=== PATIENT | male | born 1950 | race Caucasian/White ===

== ENCOUNTER 2020-02-03 12:40 | Outpatient (CLI) | payer MEDICARE, SELFPAY ==
--- NOTE | ~2020-02-03 | CT_ITS ---
EXAMINATION: CT sinus wo con DATE: 02/03/2020 13:22 INDICATION: Chronic sinusitis TECHNIQUE: Computed tomography (CT) of the paranasal sinuses was performed without contrast. Iterativ e reconstruction technique was employed. Exam dose: 284.29 mGy-cm total exam DLP. COMPARISON: None FINDINGS: Incidentally noted is a periapical abscess of the posterior-most upper right molar. There is mild rightward bowing of the anterior nasal septum There is symmetric prominence of the nasal turbinates. The ostiomeatal units are patent bilaterally. The paranasal sinuses are normally developed and aerated. The mastoid air cells are normally developed and aerated. IMPRESSION: Patent paranasal sinuses, ostiomeatal units and mastoid air cells Reviewed, dictated and finalized at [facility]. Reviewed, dictated and finalized at location A.
== END 2020-02-03 12:41 | disposition home or self-care (01) ==
PROVIDERS: PCP Family Medicine; Visit Provider Otolaryngology
DX: J32.9 Chronic sinusitis, unspecified (principal)
CPT/HCPCS: 70486

== ENCOUNTER 2020-07-11 09:05 | Outpatient (CLI) | payer MEDICARE, SELFPAY ==
--- NOTE | 2020-07-27 16:04 | WPDHOMESLEEP ---
Sleep Study - Home Unattended Date of Study: 07/11/20 Ordering Provider: Sebastian Almanzar MD Interpreting Provider: Soni Burger MD Home Sleep Study Type: Apnea Link Air Height: 1.7 m Weight: 90.718 kg Body Mass Index: 31.3 Neck Circumference (inches): 18 [place]: 9 Reason for Sleep Study Loud snoring, fatigue Sleep History Rodrigue Forde is a 70 year old man with constant loud snoring which causes other people to complain. He occasionally awakens at night with heartburn, belching or coughing. He frequently awakens from sleep feeling short of breath. He constantly has trouble sleep with a cold. He frequently wakes up gasping for breath at night. He frequently has breathing problems observed by others. He occasionally sweats excessively at night and notices his heart pounding or beating irregularly night. He constantly falls asleep during the day, involuntarily however only occasionally while driving. He occasionally falls asleep while exerting physical effort. he does not experience loss of muscle tone with strong emotion. He frequently has daytime difficulties due to excessive sleepiness. He occasionally feels paralyzed on waking or falling asleep. He occasionally has vivid dreamlike scenes upon awakening or falling asleep. He rarely feels afraid to go to sleep. He constantly has nightmares. He occasionally remembers his dreams. He frequently has racing thoughts. He occasionally feels sad or depressed. He frequently has anxiety with worry about different things. He occasionally has muscular tension, occasionally notices parts of his body jerking, occasionally kicks at night. He frequently has crawling and aching feelings in his legs. He occasionally has leg pain at night. He occasionally has morning jaw pain. He occasionally grind his teeth during sleep. He frequently is bothered by pain during the day. He constantly is awakened by pain during the night. He constantly wakes up feeling stiff in the morning, frequently with sore or achy muscles. He constantly awakens with pain in the neck and spine. He has fatigue, sexual problems, memory problems, nightmares, occasional morning headaches and insomnia. He takes antacids regularly. On occasion, he wakes up feeling refreshed. Normal bedtime is not recorded. It takes him approximately 15-30 minutes to fall asleep. He wakes up several times during the night and may stay awake for an hour or longer when he does awaken. He wakes in the morning at 6:00 a.m. he estimates getting between 4 and 6 hours of sleep at night. He takes naps. A short nap is not refreshing. Habits: Never smoked tobacco. No caffeine, alcohol or recreational drugs. [facility] Past Medical History Medical History (Updated 07/27/20 @ 17:11 by Soni Burger MD) BPH (benign prostatic hyperplasia) Fatigue GERD (gastroesophageal reflux disease) Seasonal allergies Surgical History Surgical History (Updated 07/27/20 @ 17:08 by Soni Burger MD) History of sinus surgery Status post tonsillectomy Medications Medications: sertraline 100 mg a day tamsulosin 0.4 mg daily Sleep Procedure This test was performed using 4 channel monitoring including respiratory effort channel, snoring channel, heart rate channel, and oxygen saturation channel. This study was scored using [facility] guidelines. Sleep Architecture Not applicable for home sleep test. Respiratory Analysis The apnea-hypopnea index is 20.3. He had 127 apneas. He had 40 obstructive apneas, 31% of the total, and 86 central apneas, 68% of the total. He had 1 mixed apnea which was 1% of the total. He had 18 hypopneas. There is no evidence of Lane-Holden respirations. Oximetry Data The oxygen desaturation index is 3.8, normal range. the lowest desaturation is 90%. Average saturation 95%. He had 27 desaturations. He did not spend any time below 88%. Snoring Profile The patient had 505 snoring events, a small portion of the
[2020-07-27 16:09] VITALS: BMI 31.3
== END 2020-07-11 09:06 | disposition home or self-care (01) ==
LOC: ANHCSM 09:05
PROVIDERS: PCP Family Medicine; Visit Provider Family Medicine
DX: G47.10 Hypersomnia, unspecified (principal); G47.33 Obstructive sleep apnea (adult) (pediatric)
CPT/HCPCS: 95806

== ENCOUNTER → 2020-08-26 06:53 | Outpatient (CLI) | payer MEDICARE, SELFPAY ==
[2020-08-26 19:12] LABS: SARS-CoV-2 RNA PCR Negative
== END ==
PROVIDERS: Internal Medicine Critical Care Medicine; PCP Family Medicine; Visit Provider Family Medicine
DX: Z20.822 Contact with and (suspected) exposure to COVID-19 (principal); R05 Cough
CPT/HCPCS: C9803; U0003; U0005

== ENCOUNTER → 2020-09-05 02:36 | Outpatient (CLI) | payer MEDICARE, SELFPAY ==
[2020-09-05 19:19] LABS: SARS-CoV-2 RNA PCR Negative
== END ==
PROVIDERS: PCP Family Medicine; Visit Provider Internal Medicine Critical Care Medicine
DX: R68.89 Other general symptoms and signs (principal); Z20.822 Contact with and (suspected) exposure to COVID-19
CPT/HCPCS: C9803; U0003; U0005

== ENCOUNTER 2020-09-07 08:43 | Outpatient (CLI) | payer MEDICARE, SELFPAY ==
--- NOTE | 2020-09-23 13:17 | WPDSLEEPSTUD ---
Sleep Study Date of Study: 09/07/20 Ordering Provider: Sebastian Almanzar MD Interpreting Physician: Soni Burger MD Sleep Study Type: CPAP Titration Height: 1.7 m Weight: 90.718 kg Body Mass Index: 31.3 Neck Circumference (inches): 18 [place]: 9 Reason for Sleep Study 07/11/2020 home sleep test ApneaLink : moderate obstructive sleep apnea with an apnea-hypopnea index of 20.3, mostly central events with 87% of the events being scored as central apneas or mixed apneas. He presents now for a CPAP titration. Sleep History Rodrigue Forde is a 70 year old man with constant loud snoring which causes other people to complain. He occasionally awakens at night with heartburn, belching or coughing. He frequently awakens from sleep feeling short of breath. He constantly has trouble sleep with a cold. He frequently wakes up gasping for breath at night. He frequently has breathing problems observed by others. He occasionally sweats excessively at night and notices his heart pounding or beating irregularly night. He constantly falls asleep during the day, involuntarily however only occasionally while driving. He occasionally falls asleep while exerting physical effort. he does not experience loss of muscle tone with strong emotion. He frequently has daytime difficulties due to excessive sleepiness. He occasionally feels paralyzed on waking or falling asleep. He occasionally has vivid dreamlike scenes upon awakening or falling asleep. He rarely feels afraid to go to sleep. He constantly has nightmares. He occasionally remembers his dreams. He frequently has racing thoughts. He occasionally feels sad or depressed. He frequently has anxiety with worry about different things. He occasionally has muscular tension, occasionally notices parts of his body jerking, occasionally kicks at night. He frequently has crawling and aching feelings in his legs. He occasionally has leg pain at night. He occasionally has morning jaw pain. He occasionally grind his teeth during sleep. He frequently is bothered by pain during the day. He constantly is awakened by pain during the night. He constantly wakes up feeling stiff in the morning, frequently with sore or achy muscles. He constantly awakens with pain in the neck and spine. He has fatigue, sexual problems, memory problems, nightmares, occasional morning headaches and insomnia. He takes antacids regularly. On occasion, he wakes up feeling refreshed. Normal bedtime is not recorded. It takes him approximately 15-30 minutes to fall asleep. He wakes up several times during the night and may stay awake for an hour or longer when he does awaken. He wakes in the morning at 6:00 a.m. he estimates getting between 4 and 6 hours of sleep at night. He takes naps. A short nap is not refreshing. Habits: Never smoked tobacco. No caffeine, alcohol or recreational drugs. [facility] Past Medical History Medical History (Updated 09/23/20 @ 13:57 by Soni Burger MD) BPH (benign prostatic hyperplasia) Fatigue GERD (gastroesophageal reflux disease) Seasonal allergies Surgical History Surgical History (Updated 07/27/20 @ 17:08 by Soni Burger MD) History of sinus surgery Status post tonsillectomy Social History Social History (Updated 09/23/20 @ 13:19 by Soni Burger MD) Smoking status: Never smoker Alcohol intake: never Substance use: never Medications Medications: sertraline 100 mg a day tamsulosin 0.4 mg daily Sleep Procedure This test was performed using the [employer] multiple channel system including EOG, EEG, submental EMG, EKG, nasal and oral airflow using thermistors and nasal pressure sensors, chest and abdominal belts for body position data, and pulse oximetry. Video monitoring was also performed. The study was scored using [facility] guidelines. The patient was started on CPAP using a Medium Sainz FX nasal pillow and heated humidifier. Initial pressure was 5 cm, increased to 7 cm, 9
[2020-09-23 14:00] VITALS: BMI 31.3
== END 2020-09-07 08:44 | disposition home or self-care (01) ==
LOC: ANHCSM 08:44
PROVIDERS: PCP Family Medicine; Visit Provider Family Medicine
DX: G47.33 Obstructive sleep apnea (adult) (pediatric) (principal); G25.81 Restless legs syndrome
CPT/HCPCS: 95811

== ENCOUNTER 2020-09-20 10:56 | Outpatient (CLI) | payer MEDICARE, SELFPAY ==
--- NOTE | ~2020-09-20 | XR_ITS ---
XR lumbar spine 2-3V 09/20/2020 11:22 Indication: Back pain Procedure: 3 views lumbar spine Comparison: No prior studies for comparison. Findings: There is mild dextroscoliosis of the lumbar spine centered at L2-3. There is disc narrowing at all lumbar levels. There is moderate multilevel facet hypertrophy. There is symmetry of the sacra l foramen. There is degenerative retrolisthesis at L2-3. There is atherosclerosis of the aorta. Impression: 1: Moderate lumbar spondylosis with dextroscoliosis centered at L2-3. Reviewed, dictated and finalized at location A. Impression: 1: Moderate lumbar spondylosis with dextroscoliosis centered at L2-3.
== END 2020-09-20 10:57 | disposition home or self-care (01) ==
PROVIDERS: PCP Family Medicine; Visit Provider Physician Assistant
DX: M47.26 Other spondylosis with radiculopathy, lumbar region (principal)
CPT/HCPCS: 72100

== ENCOUNTER 2022-10-09 10:24 | Outpatient (CLI) | payer MEDICARE, SELFPAY ==
--- NOTE | ~2022-10-09 | US_ITS ---
US abdomen limited INDICATION: Right upper quadrant pain PROCEDURE: Realtime right upper abdominal ultrasound. COMPARISON: No prior studies for comparison. FINDINGS: The pancreas is normal without focal mass or pancreatic ductal dilation. Liver echotexture is increased, consistent with fatty infiltration. No discrete hepatic mass. There is normal directi onal flow in the portal vein. The gallbladder is normal without stones, gallbladder wall thickening or pericholecystic fluid. Comm on bile duct measures 6 mm. No sonographic Moore's sign. IMPRESSION: 1: Hepatic steatosis. Reviewed, dictated and finalized at location L. IMPRESSION: 1: Hepatic steatosis.
== END 2022-10-09 10:25 | disposition home or self-care (01) ==
PROVIDERS: PCP Family Medicine; Visit Provider Family Medicine
DX: R10.11 Right upper quadrant pain (principal); K76.0 Fatty (change of) liver, not elsewhere classified
CPT/HCPCS: 76705

== ENCOUNTER 2024-02-24 10:05 | Outpatient (CLI) | payer MEDICARE, SELFPAY ==
--- NOTE | ~2024-02-24 | DEXA_ITS ---
Bone Density Report Name: JO ANN PHILLIPS Age: 73 Sex: Male Ethnicity: White Date of : 1950 Indication: screening for osteoporosis; height loss; Referring Provider: ZENOBIA FONG Study: Bone densitometry was performed. Exam Date: February 24, 2024 Accession number: [id number] Bone Density: Region BMD T-score Z-score Classification AP Spine(L1-L4) 1.300 1.9 2.9 Normal Femoral Neck (Left) 0.667 -1.9 -0.6 Osteopenia Total Hip (Left) 1.009 -0.2 0.6 Normal Femoral Neck (Right) 0.754 -1.3 0.0 Osteopenia Total Hip (Right) 0.968 -0.4 0.4 Normal Total Hip Mean 0.988 -0.3 0.5 Normal World Health Organization criteria for BMD impression classify patients as: Normal (T-score at or above -1.0), Osteopenia (T-score between -1.0 and -2.5), or Osteoporosis (T-score at or below -2.5). 10-year Fracture Risk(1): Major Osteoporotic Fracture 7.6% Hip Fracture 2.5% Reported Risk Factors: [place] (), Neck BMD=0.667, BMI=32.4 (1) FRAX(R) Version 3.08. Fracture probability calculated for an untreated patient. Fracture probability may be lower if the patient has received treatment. Clinical Information Provided by Patient: Patient maximum height was 67.5 No regular weight bearing exercise Drinks caffeinated beverages Impression: The patient has low bone mass, based on the Left Femoral Neck T-score. The patient has an estimated ten-year risk of hip fracture of 2.5% and an estimated ten-year risk of major fracture of 7.6%, based on the WHO FRAX algorithm. Discussion: BONE DENSITY IS LOW AT ONE OR MORE SKELETAL SITES. This patient's lowest T-score is low at one or more skeletal sites. It meets the World Health Organization's (WHO) criteria for ?low bone mass? (T-score between -1.0 and -2.5). The patient's 10-year risk of fracture as calculated by FRAX is less than the threshold where pharmacological therapy is recommended by the National Osteoporosis Foundation (NOF). However, all treatment decisions require clinical judgment and consideration of individual patient factors, including patient preferences, comorbidities, previous drug use, risk factors not captured in the FRAX model (e.g., frailty, falls, vitamin D deficiency, increased bone turnover, interval significant decline in bone density) and possible under or overestimation of fracture risk by FRAX. The patient should follow a healthful lifestyle (good nutrition with adequate calcium and vitamin D, and appropriate weight-bearing exercise). Follow-Up: Consider repeating this study in 2 to 3 years to reassess this patient's status, or sooner if there is some new clinical indication. Reported by: CADE on 02/24/2024 10:41:00 AM. Reviewed, dictated and finalized at location A. LAMAR
== END 2024-02-24 10:06 | disposition home or self-care (01) ==
LOC: ANHIMG 10:05
PROVIDERS: PCP Family Medicine; Visit Provider Family Medicine
DX: Z13.820 Encounter for screening for osteoporosis (principal); Z87.81 Personal history of (healed) traumatic fracture; M85.852 Other specified disorders of bone density and structure, left thigh; M85.851 Other specified disorders of bone density and structure, right thigh
CPT/HCPCS: 77080

== ENCOUNTER 2024-03-10 03:19 | Day surgery (SDC) | payer MEDICARE, SELFPAY ==
[2024-02-26 14:42] VITALS: BMI 29.9
[2024-03-10 10:18] VITALS: BP 121/63; PULSE 63; RESP 16; TEMP 36.8; O2SAT 99
[2024-03-10] MEDS: LACTATED RINGERS 1,000 ML 150 ML IV CONT (10:24)
--- NOTE | 2024-03-10 10:37 | WPDANESEPPF ---
Anes - Initial Pre Proc Eval Procedure: Operation Date: 03/10/24 11:30 Proposed Procedures p Colonoscopy - Sagar Heck MD Date/Time: 03/10/24 10:37 Surgeon: Sagar Heck MD Pre Op Diagnosis: Personal history colon polyps Patient Data Age: 73 Gender: M Height: 1.7 m Weight: 86.3 kg Last Vital Signs Temp 98.2 F 03/10/24 10:18 Pulse 63 03/10/24 10:18 Resp 16 03/10/24 10:18 BP 121/63 03/10/24 10:18 Pulse Ox 99 03/10/24 10:18 O2 Del Method Room Air 03/10/24 10:18 Allergies Allergy/AdvReac Type Severity Reaction Status Date / Time No Known Allergies Allergy Verified 03/10/24 10:17 Home Medications Medication Instructions Recorded Confirmed Type sertraline 100 mg tablet 100 mg PO DAILY 09/19/22 03/10/24 History tamsulosin 0.4 mg capsule 0.4 mg PO QHS 09/19/22 03/10/24 History omeprazole 20 mg capsule,delayed 20 mg PO DAILY #90 caps 11/12/23 03/10/24 Rx release Patient hx anesthesia problems: none Family hx anesthesia problems: none Results Review: All pre-operative results and documents have been reviewed as part of the pre-operative evaluation. [facility] Past Medical History Medical History BPH (benign prostatic hyperplasia) Elevated blood pressure reading without diagnosis of hypertension Fatigue GERD (gastroesophageal reflux disease) Major depression in partial remission Personal history of colonic polyps Seasonal allergies Surgical History Surgical History History of sinus surgery Status post tonsillectomy Social History Social History Smoking status: Never smoker Alcohol intake: never Substance use: never Do You Feel Safe in your Home?: Yes Lack of Transportation: No Lack of Food: Never True Current Housing: I Have Housing Concerned About Future Housing: No Difficulty Paying Gas/Electric Bills: No Difficulty Paying for Meds: No Currently Unemployed: No Education: High School Diploma/GED Living arrangements: with family Occupation/Education: retired Gender identity (if verbalized by the patient): Male Sexual Orientation (if Verbalized by the Patient): Straight or Heterosexual Spiritual care concerns: No Anes - Eval Final PreProcedure Day of Procedure 03/10/24 10:37 Patient weight: normal Heart: regular rate and rhythm Lungs: clear to auscultation Airway: Mallampati scale class III Neurological: alert and oriented Last oral intake: >/= 8 hours ASA classification: III Emergent: no Anesthetic plan: proceed Anesthesia type and monitoring: general GIVS Results Review: All pre-operative results and documents have been reviewed as part of the pre-operative evaluation. Informed Consent: The patient's anesthetic plan and its attendant risks and benefits were discussed with the patient/family/POA. Questions were solicited and answers provided to the satisfaction of the patient/family/POA.
--- NOTE | 2024-03-10 10:57 | PM.HPGS ---
History of Present Illness History of Present Illness Consent: Risks, benefits, and alternatives have been discussed and questions answered. Patient agrees to proceed with procedure. Chief complaint: Personal history colon polyps Narrative: Rodrigue Forde is a 73 year old male with colon polyp in 2019 Review of Systems Review of Systems: All systems reviewed & are unremarkable except as noted in HPI and below PMFSH Past Medical History Medical History BPH (benign prostatic hyperplasia) Elevated blood pressure reading without diagnosis of hypertension Fatigue GERD (gastroesophageal reflux disease) Major depression in partial remission Personal history of colonic polyps Seasonal allergies Surgical History Surgical History History of sinus surgery Status post tonsillectomy Social History Social History Smoking status: Never smoker Alcohol intake: never Substance use: never Do You Feel Safe in your Home?: Yes Lack of Transportation: No Lack of Food: Never True Current Housing: I Have Housing Concerned About Future Housing: No Difficulty Paying Gas/Electric Bills: No Difficulty Paying for Meds: No Currently Unemployed: No Education: High School Diploma/GED Living arrangements: with family Occupation/Education: retired Gender identity (if verbalized by the patient): Male Sexual Orientation (if Verbalized by the Patient): Straight or Heterosexual Spiritual care concerns: No Meds Home Medications and Allergies Home Medications Medication Instructions Recorded Confirmed Type sertraline 100 mg tablet 100 mg PO DAILY 09/19/22 03/10/24 History tamsulosin 0.4 mg capsule 0.4 mg PO QHS 09/19/22 03/10/24 History omeprazole 20 mg capsule,delayed 20 mg PO DAILY #90 caps 11/12/23 03/10/24 Rx release Allergies Allergy/AdvReac Type Severity Reaction Status Date / Time No Known Allergies Allergy Verified 03/10/24 10:17 Vital Signs Vital Signs - 24 hr 03/10/24 10:18 Temperature 98.2 F Pulse Rate 63 Respiratory Rate 16 Blood Pressure 121/63 Pulse Oximetry 99 Oxygen Delivery Room Air Exam Const: General: comfortable and no acute distress HENMT: Face/Nose/Sinus: Normal nares present Eyes: General: appearance normal, both eyes and all related structures Neck: Neck: no JVD Resp: Auscultation: clear to auscultation bilaterally Cardio: Rate: regular rate Rhythm: regular rhythm GI: Inspection: non-distended GI Palp: Yes Soft to palpation Skin: General skin exam: normal color Neuro: General: gait normal Speech: normal speech Extrem: General: normal to inspection Psych: Mental Status: mental status grossly normal Assessment and Plan Assessment and plan (1) Personal history of colonic polyps: Code(s): Z86.010 - Personal history of colon polyps Status: Acute Assessment and Plan: colonoscopy
[2024-03-10 11:27] VITALS: BP 102/58; PULSE 54; RESP 18; O2SAT 96
[2024-03-10 11:37] VITALS: BP 99/60; PULSE 56; RESP 24; O2SAT 100
[2024-03-10 11:47] VITALS: BP 112/67; PULSE 54; RESP 14; O2SAT 95
== END 2024-03-10 11:53 | disposition home or self-care (01) ==
PROVIDERS: PCP Family Medicine; Visit Provider Internal Medicine Gastroenterology
PROC: 0DJD8ZZ Inspection of Lower Intestinal Tract, Via Natural or Artificial Opening Endoscopic (ICD-10-PCS; CPT 45378; principal; 2024-03-10 11:30)
DX: Z12.11 Encounter for screening for malignant neoplasm of colon (principal); D12.0 Benign neoplasm of cecum; D12.2 Benign neoplasm of ascending colon; D12.3 Benign neoplasm of transverse colon; K57.30 Diverticulosis of large intestine without perforation or abscess without bleeding; K64.8 Other hemorrhoids; K21.9 Gastro-esophageal reflux disease without esophagitis; N40.0 Benign prostatic hyperplasia without lower urinary tract symptoms; F32.4 Major depressive disorder, single episode, in partial remission
CPT/HCPCS: 45381; 45385; 88305; J2003; J2704; J7120

== ENCOUNTER 2024-03-12 13:08 | Observation (INO) | payer MEDICARE, SELFPAY ==
[2024-03-12 13:20] VITALS: BMI 30.7
[2024-03-12 13:34] LABS: Hematocrit 30.8 % (42.0-52.0); Mean Corpuscular HGB Conc 32.5 g/dl (32-36); Mean Corpuscular Hemoglobin 27.9 pg (26-34); Mean Corpuscular Volume 85.8 fl (80-100); Platelet Count Result 176 k/mm3 (150-375); Red Blood Count 3.59 M/mm3 (4.6-6.20); Red Cell Distribution Width 14.5 % (11.5-14.5); White Blood Count 8.4 K/mm3 (4.5-10.0)
[2024-03-12 13:46] LABS: INR 1.1; Prothrombin Time 14.4 Seconds (11.1-14.7)
[2024-03-12 13:47] LABS: Partial Thromboplastin Time 28.1 Seconds (22.3-36.8)
[2024-03-12 13:48] LABS: Anion Gap 3 mmol/L (4-12); Blood Urea Nitrogen 19 mg/dL (9-20); Calcium 8.8 mg/dL (8.4-10.2); Carbon Dioxide 26 mmol/L (22-30); Chloride 106 mmol/L (98-107); Estimated Glomerular Filt Rate > 60; Glucose 110 mg/dL (65-110); Potassium 5.2 mmol/L (3.4-5.0); Sodium 135 mmol/L (137-145)
[2024-03-12 14:00] VITALS: PULSE 67
--- NOTE | 2024-03-12 14:14 | PC.NURSE ---
1251pm arrived to the room via stretcher with EMS from another hospital facility. Alert and oriented at this time. machine driller placed on and functioning at this time. Vital signs obtained and WNL at this time. Denies pain or discomfort. Denies dizziness. States he went to the other facility related to bleeding when having a bowel movement. Last bowel movement today 07/11/23 at 0330am, per patient and RN at other facility. Discussed plan of care including lab draws, medications, GI consult, diet, and activity with patient. Verbalizes understanding at this time. No acute distress noted.
--- NOTE | 2024-03-12 15:13 | P.CONGI_ITS ---
Assessment and Plan Assessment and plan (1) GI bleed: Qualifiers: GI bleed type/associated pathology: unspecified gastrointestinal hemorrhage type Qualified Code(s): K92.2 - Gastrointestinal hemorrhage, unspecified Code(s): K92.2 - Gastrointestinal hemorrhage, unspecified Status: Acute Assessment and Plan: most likely post polypectomy bleeding, had large TA adenoma polyps removed, I even placed a clip it has not had more bleeding for last 12 hours but had pre syncopal episode, he is agreeable to have colonoscopy tomorrow so we can assess and ensure that bleeding has stopped (2) Acute blood loss anemia: Code(s): D62 - Acute posthemorrhagic anemia Status: Acute Assessment and Plan: monitor for more signs of bleeding (3) Rectal bleeding: Code(s): K62.5 - Hemorrhage of anus and rectum Status: Acute (4) Post-polypectomy bleeding: Status: Acute Assessment and Plan: colonoscopy tomorrow (5) Near syncope: Code(s): R55 - Syncope and collapse Status: Acute GI Consult Note Consult date/time: 03/12/24 15:13 Reason for consult: rectal bleeding HPI: Rodrigue Forde is a 73 year old male h/o HTN and recent colonoscopy because previous colon polyps. He had several polyps, largest 12 mm at ascending with clip placed to prevent bleeding, had another polyp in transverse removed using hot snare. Pathology c/w TA polyps. He started passing blood with stool several times then became lightheaded and almost passed out finally went to another ER. Hgb 10, CT scan showed possible inflammation in transverse colon and transferred here. Last BM was at 3 am and feeling ok, no abdominal pain. Review of Systems Constitutional: Constitutional: Denies chills Eyes: Eyes: Denies blurry vision ENT: Reports Normal hearing present Cardiovascular: Cardiovascular: Denies chest pain Respiratory: Respiratory: Denies cough Gastrointestinal: Gastrointestinal: Reports hematochezia Genitourinary: Genitourinary: Denies dysuria Musculoskeletal: Musculoskeletal: Denies neck pain Integumentary/Breasts: Skin/Breast: Denies rash Neurologic: Denies Abnormal speech present Psychiatric: Psychiatric: Denies behavioral changes [facility] Past Medical History Medical History (Updated 03/12/24 @ 15:17 by Sagar Heck MD) Acute blood loss anemia BPH (benign prostatic hyperplasia) Elevated blood pressure reading without diagnosis of hypertension Fatigue GERD (gastroesophageal reflux disease) Major depression in partial remission Near syncope Personal history of colonic polyps Post-polypectomy bleeding Rectal bleeding Restless legs syndrome (RLS) Seasonal allergies Surgical History Surgical History History of sinus surgery Status post tonsillectomy Social History Social History Smoking status: Never smoker Second hand tobacco smoke exposure: No Alcohol intake: never Drinks per week: 0 Substance use: never Substance use type: does not use Do You Feel Safe in your Home?: Yes Lack of Transportation: No Lack of Food: Never True Current Housing: I Have Housing Concerned About Future Housing: No Difficulty Paying Gas/Electric Bills: No Difficulty Paying for Meds: No Currently Unemployed: No Education: High School Diploma/GED Difficulty w/ Childcare or Family Care: No Living arrangements: with family Occupation/Education: retired Gender identity (if verbalized by the patient): Male Sexual Orientation (if Verbalized by the Patient): Straight or Heterosexual Spiritual care concerns: No Meds Home Medications and Allergies Home Medications Medication Instructions Recorded Confirmed Type sertraline 100 mg tablet 100 mg PO DAILY 09/19/22 03/12/24 History tamsulosin 0.4 mg capsule 0.4 mg PO QHS 09/19/22 03/12/24 History omeprazole 20 mg capsule,delayed 20 mg PO DAILY #90 caps 11/12/23 03/12/24 Rx release Allergies Allergy/AdvReac Type Severity Reaction Status Date / Time No Known Allergies Allergy Verified 03/10/24 10:17 Vital Signs Vital Signs - 24 hr 03/12/24 14:00 Pulse Rate 67 Exam Const: General: comfortable and no acute distress HENMT: Face/Nose/Sinus: Normal nares present Eyes: General: appearance normal, both eyes and all related structures Neck: Neck: supple Resp: Auscultation: clear to auscultation bilaterally Cardio: Rate: regular rate Rhythm: regular rhythm GI: Inspection: non-distended GI Palp: Yes Soft to palpation and No Tenderness to palpation present (GI) Auscultation: normal bowel sounds Skin: General skin exam: normal color Neuro: Speech: normal speech Motor exam (neuro): 5/5 motor strength present throughout Extrem: General: normal to inspection Psych: Mental Status: mental status grossly normal Results Labs 03/12/24 13:28 03/12/24 13:28 Labs: Short CBC 03/12/24 Range/Units 13:28 WBC 8.4 (4.5-10.0) K/mm3 Hgb 10.0 L (14.0-18.0) g/dL Hct 30.8 L (42.0-52.0) % Plt Count 176 (150-375) k/mm3 BMP 03/12/24 13:28 Sodium 135 L Potassium 5.2 H Chloride 106 Carbon Dioxide 26 BUN 19 Creatinine 1.10 Glucose 110 Calcium 8.8
[2024-03-12 16:00] VITALS: BP 136/66; PULSE 70; PULSE 72; RESP 20; TEMP 36.6; O2SAT 98
--- NOTE | 2024-03-12 16:01 | PM.IMHP ---
H&P: HPI History of Present Illness Date/Time: 03/12/24 16:01 Chief Complaint: Blood in Stool Narrative: 73 y/o M presents here with blood in his stool with PMH of BPH, GERD, depression, sleep apnea with intermittent CPAP use, and seasonal allergies. The patient presented to [facility] ER on 03/12 for further evaluation of blood in his stool. The patient had a colonoscopy performed on 03/10 (Saturday) here at [place] with Ney MAYO. Colonoscopy showed colonic polyps, diverticulosis without perforation or abscess or bleeding, internal hemorrhoids. The patient underwent multiple polypectomies (4) during the scope with 1 clip placed. Patient had 1 small bowel movement same day after the scope that was liquid. Stools have remained loose. Patient began having multiple large volume BMs mixed with blood, patient and his feel it was more blood, started at 8:00 p.m. on 03/11 (Saturday). He described the blood as both dark red clots and bright red blood. Since onset he has had 10 bloody bowel movements since onset, last episode at 02:30 a.m. this morning. With the last episode the patient felt lightheaded and diaphoretic like he may pass out. He endorses mild abdominal cramping, lightheadedness, and nausea without vomiting. Denies fever, chills, or shortness of breath. The patient is currently reporting resolution of abdominal pain. Reporting mild bloating and gas. Initial VS at transfer: ED workup showed: WBC 13.61, hemoglobin 10.3, creatinine 1.33. CT of the abdomen/pelvis showed short segment wall thickening and hazy fat stranding involving the mid transverse colon (findings nonspecific but a focal infection or inflammatory process cannot be excluded), no evidence of perforation or abscess, colonic diverticulosis without acute inflammatory process, interval progression of the superior endplate L1 vertebral fracture. Review of Systems Review of Systems: All systems reviewed & are unremarkable except as noted in HPI and below PMFSH Past Medical History Medical History Acute blood loss anemia BPH (benign prostatic hyperplasia) Elevated blood pressure reading without diagnosis of hypertension Fatigue GERD (gastroesophageal reflux disease) Major depression in partial remission Near syncope Personal history of colonic polyps Post-polypectomy bleeding Rectal bleeding Restless legs syndrome (RLS) Seasonal allergies Surgical History Surgical History History of sinus surgery Status post tonsillectomy Social History Social History Smoking status: Never smoker Second hand tobacco smoke exposure: No Alcohol intake: never Drinks per week: 0 Substance use: never Substance use type: does not use Do You Feel Safe in your Home?: Yes Lack of Transportation: No Lack of Food: Never True Current Housing: I Have Housing Concerned About Future Housing: No Difficulty Paying Gas/Electric Bills: No Difficulty Paying for Meds: No Currently Unemployed: No Education: High School Diploma/GED Difficulty w/ Childcare or Family Care: No Living arrangements: with family Occupation/Education: retired Gender identity (if verbalized by the patient): Male Sexual Orientation (if Verbalized by the Patient): Straight or Heterosexual Spiritual care concerns: No Meds Home Medications and Allergies Home Medications Medication Instructions Recorded Confirmed Type sertraline 100 mg tablet 100 mg PO DAILY 09/19/22 03/12/24 History tamsulosin 0.4 mg capsule 0.4 mg PO QHS 09/19/22 03/12/24 History omeprazole 20 mg capsule,delayed 20 mg PO DAILY #90 caps 11/12/23 03/12/24 Rx release Allergies Allergy/AdvReac Type Severity Reaction Status Date / Time No Known Allergies Allergy Verified 03/10/24 10:17 Exam Const: General: comfortable and no acute distress Other: , male, nontoxic appearance HENMT: Face/Nose/Sinus: Normal nares present Mouth: Yes moist mucous membranes Eyes: General: appearance normal, both eyes and all related structures Sclera: sclerae normal Pupils: Equal, round and reactive pupils present EOM: EOMs intact bilaterally Resp: Effort & Inspection: normal respiratory effort Auscultation: clear to auscultation bilaterally Cardio: Rate: regular rate Rhythm: regular rhythm Other: S1-S2 present without murmur, rub, ectopy GI: Other: Normo to hyperactive bowel sounds in all quadrants Skin: General skin exam: normal color and no rashes or lesions noted Wounds: no wounds Neuro: Speech: normal speech Motor exam (neuro): 5/5 motor strength present throughout Sensory Exam: normal sensation Other: A&O x4 Extrem: General: normal to inspection Psych: Mental Status: mental status grossly normal Affect: normal affect Other: Good insight and judgment, pleasant H&P: Results Labs Labs: Short CBC 03/12/24 Range/Units 13:28 WBC 8.4 (4.5-10.0) K/mm3 Hgb 10.0 L (14.0-18.0) g/dL Hct 30.8 L (42.0-52.0) % Plt Count 176 (150-375) k/mm3 Assessment and Plan Assessment and plan (1) GI bleed: Qualifiers: GI bleed type/associated pathology: unspecified gastrointestinal hemorrhage type Qualified Code(s): K92.2 - Gastrointestinal hemorrhage, unspecified Code(s): K92.2 - Gastrointestinal hemorrhage, unspecified Status: Acute Assessment and Plan: - Hgb 10.3 -> 10, stable - GI consulted, plan for colonoscopy tomorrow. - NPO at midnight - colonoscopy, previous (03/10/24): Colon polyps, diverticulosis without perforation or abscess without bleeding, internal hemorrhoids. For polypectomies performed with 1 resolution clip placed. - trend H&H (2) Obstructive sleep apnea: Code(s): G47.33 - Obstructive sleep apnea (adult) (pediatric) Status: Acute Assessment and Plan: - continue home CPAP Plan Diet: Clear liquid, NPO at midnight GI Prophylaxis: Not currently indicated DVT Prophylaxis: SCDs Lines: Peripheral Code Status: Full code Quality VTE Prophylaxis VTE prophylaxis: mechanical ordered Hospitalist MIPS Advance Care Plan I have confirmed that the patient's Advanced Care Plan is present, code status is documented, or surrogate decision maker is listed in patient medical record.: Yes Medication Reconciliation I have utilized all available resources to obtain, update and review the patients current medications (includes all prescriptions, OTC, herbals, cannabis, and nutritional supplements).: Yes
--- NOTE | 2024-03-12 17:07 | PCRCNOTE ---
I brought a BiPAP/CPAP to the patient, he said he wears one at night when he is at home. He did not bring his own machine in but when I offered for him to use our machine he said no he didn't want to use ours. I told him if he changed his mind that he can let us know.
[2024-03-12] MEDS: BISACODYL 5 MG TABLET EC 20 MG PO (18:07)
[2024-03-12] MEDS: polyethylene glycoL 3350 238 GM BOTTLE PO (18:07)
[2024-03-12] MEDS: ONDANSETRON INJ 4 MG/2 ML VIAL IV PUSH (18:07)
[2024-03-12 19:51] VITALS: BP 114/67; PULSE 80; RESP 16; TEMP 36.4; O2SAT 96
[2024-03-12 20:00] VITALS: PULSE 83
[2024-03-12 20:38] LABS: Hematocrit 30.6 % (42.0-52.0); Hemoglobin 10.2 g/dL (14.0-18.0)
[2024-03-12] MEDS: TAMSULOSIN HCL 0.4 MG CAPSULE PO (21:09)
[2024-03-12 22:00] VITALS: PULSE 85
[2024-03-12 23:45] VITALS: BP 148/66; PULSE 77; RESP 16; TEMP 36.6; O2SAT 96
[2024-03-13] VITALS (13 sets, daily range): BP systolic 94–131; BP diastolic 47–87; PULSE 60–105; RESP 16–18; TEMP 36.2–36.6; O2SAT 94–99
[2024-03-13 00:41] LABS: Hematocrit 30.7 % (42.0-52.0)
[2024-03-13 04:54] LABS: Hematocrit 29.2 % (42.0-52.0); Hemoglobin 9.2 g/dL (14.0-18.0); Mean Corpuscular HGB Conc 31.5 g/dl (32-36); Mean Corpuscular Hemoglobin 27.3 pg (26-34); Mean Corpuscular Volume 86.6 fl (80-100); Mean Platelet Volume 11.1 fl (7.4-10.4); Platelet Count Result 166 k/mm3 (150-375); Red Blood Count 3.37 M/mm3 (4.6-6.20); Red Cell Distribution Width 14.4 % (11.5-14.5); White Blood Count 9.8 K/mm3 (4.5-10.0)
[2024-03-13 05:16] LABS: Anion Gap 7 mmol/L (4-12); Blood Urea Nitrogen 13 mg/dL (9-20); Calcium 8.7 mg/dL (8.4-10.2); Carbon Dioxide 22 mmol/L (22-30); Chloride 105 mmol/L (98-107); Estimated CRCL calculation 61 ml/min; Estimated Glomerular Filt Rate > 60; Glucose 93 mg/dL (65-110); Sodium 134 mmol/L (137-145)
[2024-03-13 08:50] LABS: Iron 70 ug/dL (49-181)
[2024-03-13 09:00] LABS: Percent Iron Saturation 29 % (20-50)
[2024-03-13] MEDS: LACTATED RINGERS 1,000 ML 150 ML IV CONT (13:04)
--- NOTE | 2024-03-13 13:14 | WPDANESEPPF ---
Anes - Initial Pre Proc Eval Procedure: Operation Date: 03/13/24 14:30 Proposed Procedures p Colonoscopy - Sagar Heck MD Date/Time: 03/13/24 13:14 Surgeon: Thom Rodriguez MD Pre Op Diagnosis: GI Bleed Patient Data Age: 73 Gender: M Height: 1.7 m Weight: 89 kg Last Vital Signs Temp 97.2 F L 03/13/24 13:01 Pulse 66 03/13/24 13:01 Resp 18 03/13/24 13:01 BP 131/64 03/13/24 13:01 Pulse Ox 97 03/13/24 13:01 O2 Del Method Room Air 03/13/24 13:01 Allergies Allergy/AdvReac Type Severity Reaction Status Date / Time No Known Allergies Allergy Verified 03/10/24 10:17 Home Medications Medication Instructions Recorded Confirmed Type sertraline 100 mg tablet 100 mg PO DAILY 09/19/22 03/12/24 History tamsulosin 0.4 mg capsule 0.4 mg PO QHS 09/19/22 03/12/24 History omeprazole 20 mg capsule,delayed 20 mg PO DAILY #90 caps 11/12/23 03/12/24 Rx release Laboratory Tests 03/12/24 03/12/24 03/12/24 13:28 13:29 20:34 WBC 8.4 K/mm3 (4.5-10.0) RBC 3.59 L M/mm3 (4.6-6.20) Hgb 10.0 L g/dL 10.2 L g/dL (14.0-18.0) (14.0-18.0) Hct 30.8 L % 30.6 L % (42.0-52.0) (42.0-52.0) MCV 85.8 fl (80-100) MCH 27.9 pg (26-34) MCHC 32.5 g/dl (32-36) RDW 14.5 % (11.5-14.5) Plt Count 176 k/mm3 (150-375) MPV 11.0 H fl (7.4-10.4) PT 14.4 Seconds (11.1-14.7) INR 1.1 APTT 28.1 Seconds (22.3-36.8) Sodium 135 L mmol/L (137-145) Potassium 5.2 H mmol/L (3.4-5.0) Chloride 106 mmol/L (98-107) Carbon Dioxide 26 mmol/L (22-30) Anion Gap 3 L mmol/L (4-12) BUN 19 mg/dL (9-20) Creatinine 1.10 mg/dL (0.7-1.3) Estim Creat Clear Calc Not Reportable Estimated GFR > 60 (59 - ) Glucose 110 mg/dL (65-110) Calcium 8.8 mg/dL (8.4-10.2) Iron TIBC % Saturation Ferritin Blood Type O Positive Antibody Screen Negative 03/13/24 03/13/24 03/13/24 00:19 04:35 04:36 WBC 9.8 K/mm3 (4.5-10.0) RBC 3.37 L M/mm3 (4.6-6.20) Hgb 10.0 L g/dL 9.2 L g/dL (14.0-18.0) (14.0-18.0) Hct 30.7 L % 29.2 L % (42.0-52.0) (42.0-52.0) MCV 86.6 fl (80-100) MCH 27.3 pg (26-34) MCHC 31.5 L g/dl (32-36) RDW 14.4 % (11.5-14.5) Plt Count 166 k/mm3 (150-375) MPV 11.1 H fl (7.4-10.4) PT INR APTT Sodium 134 L mmol/L (137-145) Potassium 4.0 mmol/L (3.4-5.0) Chloride 105 mmol/L (98-107) Carbon Dioxide 22 mmol/L (22-30) Anion Gap 7 mmol/L (4-12) BUN 13 D mg/dL (9-20) Creatinine 1.00 mg/dL (0.7-1.3) Estim Creat Clear Calc 61 ml/min Estimated GFR > 60 (59 - ) Glucose 93 mg/dL (65-110) Calcium 8.7 mg/dL (8.4-10.2) Iron 70 ug/dL (49-181) TIBC 243 L ug/dL (265-497) % Saturation 29 % (20-50) Ferritin 75.30 ng/mL (11.1-264) Blood Type Antibody Screen Patient hx anesthesia problems: none Family hx anesthesia problems: none Results Review: All pre-operative results and documents have been reviewed as part of the pre-operative evaluation. [facility] Past Medical History Medical History Acute blood loss anemia BPH (benign prostatic hyperplasia) Elevated blood pressure reading without diagnosis of hypertension Fatigue GERD (gastroesophageal reflux disease) Major depression in partial remission Near syncope Personal history of colonic polyps Post-polypectomy bleeding Rectal bleeding Restless legs syndrome (RLS) Seasonal allergies Surgical History Surgical History History of sinus surgery Status post tonsillectomy Social History Social History Smoking status: Never smoker Second hand tobacco smoke exposure: No Alcohol intake: never Drinks per week: 0 Substance use: never Substance use type: does not use Do You Feel Safe in your Home?: Yes Lack of Transportation: No Lack of Food: Never True Current Housing: I Have Housing Concerned About Future Housing: No Difficulty Paying Gas/Electric Bills: No Difficulty Paying for Meds: No Currently Unemployed: No Education: High School Diploma/GED Difficulty w/ Childcare or Family Care: No Living arrangements: with family Occupation/Education: retired Gender identity (if verbalized by the patient): Male Sexual Orientation (if Verbalized by the Patient): Straight or Heterosexual Spiritual care concerns: No Anes - Eval Final PreProcedure Day of Procedure 03/13/24 13:14 Patient weight: obese Heart: regular rate and rhythm Lungs: clear to auscultation Airway: Mallampati scale class II Neurological: alert and oriented Last oral intake: >/= 8 hours ASA classification: III Emergent: no Anesthetic plan: proceed Anesthesia type and monitoring: general GIVS and standard monitoring Results Review: All pre-operative results and documents have been reviewed as part of the pre-operative evaluation. HTN, RYAN on CPAP, now for colonosocpy for pos polypectomy bleed, Hgb 9. Informed Consent: The patient's anesthetic plan and its attendant risks and benefits were discussed with the patient/family/POA. Questions were solicited and answers provided to the satisfaction of the patient/family/POA.
--- NOTE | 2024-03-13 14:47 | PM.IMPN ---
Progress Note: A&P Assessment and Plan (1) GI bleed: Qualifiers: GI bleed type/associated pathology: unspecified gastrointestinal hemorrhage type Qualified Code(s): K92.2 - Gastrointestinal hemorrhage, unspecified Code(s): K92.2 - Gastrointestinal hemorrhage, unspecified Status: Acute Assessment and Plan: - Hgb 10.3 -> 9.2, stable For colonoscopy today - colonoscopy, previous (03/10/24): Colon polyps, diverticulosis without perforation or abscess without bleeding, internal hemorrhoids. For polypectomies performed with 1 resolution clip placed. - trend H&H GI following (2) Obstructive sleep apnea: Code(s): G47.33 - Obstructive sleep apnea (adult) (pediatric) Status: Acute Assessment and Plan: - continue home CPAP Plan Diet: Clear liquid, NPO at midnight GI Prophylaxis: Not currently indicated DVT Prophylaxis: SCDs Lines: Peripheral Code Status: Full code Subjective Date/time seen: 03/13/24 14:47 Interval history: Comfortable at bedside and awaiting colonoscopy at the time of this encounter earlier Review of Systems Review of Systems: All systems reviewed & are unremarkable except as noted in HPI and below Exam Const: General: comfortable and no acute distress Other: , male, nontoxic appearance HENMT: Face/Nose/Sinus: Normal nares present Mouth: Yes moist mucous membranes Eyes: General: appearance normal, both eyes and all related structures Sclera: sclerae normal Pupils: Equal, round and reactive pupils present EOM: EOMs intact bilaterally Resp: Effort & Inspection: normal respiratory effort Auscultation: clear to auscultation bilaterally Cardio: Rate: regular rate Rhythm: regular rhythm Other: S1-S2 present without murmur, rub, ectopy GI: Other: Normo to hyperactive bowel sounds in all quadrants Skin: General skin exam: normal color and no rashes or lesions noted Wounds: no wounds Neuro: Cranial nerves: Yes Equal, round and reactive pupils present Speech: normal speech Motor exam (neuro): 5/5 motor strength present throughout Sensory Exam: normal sensation Other: A&O x4 Extrem: General: normal to inspection Psych: Mental Status: mental status grossly normal Affect: normal affect Other: Good insight and judgment, pleasant Objective Data Vital Signs Vital Signs: Vital Signs - 24 hr 03/12/24 16:00 03/12/24 16:00 03/12/24 16:00 Temperature 97.8 F Pulse Rate 72 70 Respiratory Rate 20 Blood Pressure 136/66 Pulse Oximetry 98 Oxygen Delivery Room Air 03/12/24 19:51 03/12/24 20:00 03/12/24 20:00 Temperature 97.5 F L Pulse Rate 80 83 Respiratory Rate 16 Blood Pressure 114/67 Pulse Oximetry 96 Oxygen Delivery Room Air 03/12/24 22:00 03/12/24 23:45 03/13/24 00:00 Temperature 97.8 F Pulse Rate 85 77 Respiratory Rate 16 Blood Pressure 148/66 H Pulse Oximetry 96 Oxygen Delivery Room Air 03/13/24 00:00 03/13/24 02:00 03/13/24 04:00 Temperature 97.8 F Pulse Rate 73 105 H 82 Respiratory Rate 16 Blood Pressure 119/60 Pulse Oximetry 94 Oxygen Delivery 03/13/24 04:00 03/13/24 04:00 03/13/24 06:00 Temperature Pulse Rate 70 73 Respiratory Rate Blood Pressure Pulse Oximetry Oxygen Delivery Room Air 03/13/24 08:00 03/13/24 08:00 03/13/24 10:00 Temperature 97.4 F L Pulse Rate 69 68 64 Respiratory Rate 16 Blood Pressure 117/59 L Pulse Oximetry 96 Oxygen Delivery 03/13/24 12:00 03/13/24 13:01 03/13/24 14:12 Temperature 97.4 F L 97.2 F L Pulse Rate 65 66 60 Respiratory Rate 18 18 18 Blood Pressure 111/61 131/64 99/47 L Pulse Oximetry 96 97 95 Oxygen Delivery Room Air Room Air 03/13/24 14:22 03/13/24 14:32 03/13/24 12:00 Temperature Pulse Rate 64 70 61 Respiratory Rate 18 18 Blood Pressure 94/52 L 120/60 Pulse Oximetry 96 99 Oxygen Delivery Room Air Room Air Intake/Output Intake/Output: Intake & Output 03/10/24 03/11/24 03/12/24 03/13/24 23:59 23:59 23:59 23:59 Intake Total 610 1000 Balance 610 1000 Meds/Results Medications: Active Medications Generic Name Dose Route Start Last Admin Trade Name Freq PRN Reason Stop Dose Admin Acetaminophen 650 mg 03/12/24 13:08 Acetaminophen 325 Mg Tablet PO Q4H PRN Mild Pain (1-3) or Fever Hydrocodone Bitart/Acetaminophen 1 tab 03/12/24 13:08 Hydrocodone/Acetaminophen (*Crx) 5-325 Mg Tablet PO Q4H PRN Moderate Pain (4-6) Bisacodyl 5 mg 03/12/24 13:08 Bisacodyl 5 Mg Tablet Ec PO DAILY PRN Constipation Lactated Ringer's 1,000 mls @ 150 mls/hr 03/13/24 13:00 03/13/24 14:29 Lr - Lactated Ringers Iv IV CONT Infused .Q6H40M [facility] Infusion Lactated Ringer's 1,000 mls @ 150 mls/hr 03/13/24 13:20 Lr - Lactated Ringers Iv IV CONT .Q6H40M BRIGHT Ondansetron HCl 4 mg 03/12/24 17:53 03/12/24 18:07 Ondansetron Inj 4 Mg/2 Ml Vial IV PUSH 4 mg Q6H PRN Administration Nausea And Vomiting Pantoprazole Sodium 40 mg 03/13/24 09:00 Pantoprazole 40 Mg Tablet PO DAILY BRIGHT Sertraline HCl 100 mg 03/13/24 09:00 Sertraline Hcl 50 Mg Tablet PO DAILY BRIGHT Tamsulosin HCl 0.4 mg 03/12/24 21:00 03/12/24 21:09 Tamsulosin Hcl 0.4 Mg Capsule PO 0.4 mg QHS BRIGHT Administration Labs Labs: Laboratory Results - last 24 hr 03/12/24 03/13/24 03/13/24 20:34 00:19 04:35 WBC RBC Hgb 10.2 L 10.0 L Hct 30.6 L 30.7 L MCV MCH MCHC RDW Plt Count MPV Sodium Potassium Chloride Carbon Dioxide Anion Gap BUN Creatinine Estim Creat Clear Calc Estimated GFR Glucose Calcium Iron 70 TIBC 243 L % Saturation 29 Ferritin 75.30 03/13/24 04:36 WBC 9.8 RBC 3.37 L Hgb 9.2 L Hct 29.2 L MCV 86.6 MCH 27.3 MCHC 31.5 L RDW 14.4 Plt Count 166 MPV 11.1 H Sodium 134 L Potassium 4.0 Chloride 105 Carbon Dioxide 22 Anion Gap 7 BUN 13 D Creatinine 1.00 Estim Creat Clear Calc 61 Estimated GFR > 60 Glucose 93 Calcium 8.7 Iron TIBC % Saturation Ferritin Quality VTE Prophylaxis VTE prophylaxis: mechanical ordered
[2024-03-13] MEDS: TAMSULOSIN HCL 0.4 MG CAPSULE PO (20:10)
[2024-03-14] VITALS: BP 131/61; PULSE 78; RESP 16; TEMP 36.5; O2SAT 95
[2024-03-14 04:59] LABS: Basophils Percent Auto 0.3 % (0.2-1.2); Eosinophils Absolute Auto 0.3 K/mm3 (0-0.3); Eosinophils Percent Auto 3.3 % (0-4.4); Hematocrit 26.3 % (42.0-52.0); Hemoglobin 8.3 g/dL (14.0-18.0); Immature Granulocyte Absolute 0.03 K/mm3 (0.00-0.031); Immature Granulocyte Percent A 0.3 % (0-0.5); Lymphocytes Absolute Auto 2.85 K/mm3 (0.9-3.2); Lymphocytes Percent Auto 32.3 % (18.3-44.2); Mean Corpuscular HGB Conc 31.6 g/dl (32-36); Mean Corpuscular Hemoglobin 27.2 pg (26-34); Mean Corpuscular Volume 86.2 fl (80-100); Monocytes Absolute Auto 0.7 K/mm3 (0.1-0.6); Monocytes Percent Auto 8.1 % (2.6-8.5); Neutrophils Absolute Auto 4.9 K/mm3 (1.3-6.7); Neutrophils Percent Auto 55.7 % (45.5-73.1); Platelet Count Result 172 k/mm3 (150-375); Red Blood Count 3.05 M/mm3 (4.6-6.20); Red Cell Distribution Width 14.2 % (11.5-14.5); White Blood Count 8.8 K/mm3 (4.5-10.0)
[2024-03-14 05:17] LABS: Alanine Aminotransferase 12 U/L (6-50); Albumin Level 3.1 g/dL (3.5-5.1); Alkaline Phosphatase 31 U/L (38-126); Anion Gap 4 mmol/L (4-12); Aspartate Amino Transferase 16 U/L (17-59); Bilirubin,Total 0.5 mg/dL (0.2-1.3); Blood Urea Nitrogen 8 mg/dL (9-20); Calcium 8.5 mg/dL (8.4-10.2); Carbon Dioxide 25 mmol/L (22-30); Chloride 104 mmol/L (98-107); Estimated CRCL calculation 61 ml/min; Estimated Glomerular Filt Rate > 60; Glucose 88 mg/dL (65-110); Potassium 3.8 mmol/L (3.4-5.0); Sodium 133 mmol/L (137-145)
[2024-03-14] MEDS: PANTOPRAZOLE 40 MG TABLET PO (08:33)
[2024-03-14 08:50] VITALS: BP 130/63; PULSE 70; RESP 12; TEMP 36.7; O2SAT 95
[2024-03-14 11:56] VITALS: BP 113/72; PULSE 71; RESP 16; TEMP 36.8; O2SAT 98
--- NOTE | 2024-03-14 12:09 | P.DS_ITS ---
DS: Admitting Diagnosis Discharge Date 03/14/24 Admitting Diagnosis Blood in Stool DS: Discharge Diagnosis Discharge Diagnosis (1) Post-polypectomy bleeding: Status: Acute (2) Acute blood loss anemia: Code(s): D62 - Acute posthemorrhagic anemia Status: Acute (3) GI bleed: Qualifiers: GI bleed type/associated pathology: unspecified gastrointestinal hemorrhage type Qualified Code(s): K92.2 - Gastrointestinal hemorrhage, unspecified Code(s): K92.2 - Gastrointestinal hemorrhage, unspecified Status: Acute DS: Summary Hospital Course Hospital Course: 73 y/o M presents here with blood in his stool with PMH of BPH, GERD, depression, sleep apnea with intermittent CPAP use, and seasonal allergies. The patient presented to [facility] ER on 03/12 for further evaluation of blood in his stool. The patient had a colonoscopy performed on 03/10 (Saturday) here at [place] with Ney MAYO. Colonoscopy showed colonic polyps, diverticulosis without perforation or abscess or bleeding, internal hemorrhoids. The patient underwent multiple polypectomies (4) during the scope with 1 clip placed. Patient had 1 small bowel movement same day after the scope that was liquid. Stools have remained loose. Patient began having multiple large volume BMs mixed with blood, patient and his feel it was more blood, started at 8:00 p.m. on 03/11 (Saturday). He described the blood as both dark red clots and bright red blood. Since onset he has had 10 bloody bowel movements since onset, last episode at 02:30 a.m. this morning. With the last episode the patient felt lightheaded and diaphoretic like he may pass out. He endorses mild abdominal cramping, lightheadedness, and nausea without vomiting. Denies fever, chills, or shortness of breath. The patient is currently reporting resolution of abdominal pain. Reporting mild bloating and gas. Initial VS at transfer: ED workup showed: WBC 13.61, hemoglobin 10.3, creatinine 1.33. CT of the abdomen/pelvis showed short segment wall thickening and hazy fat stranding involving the mid transverse colon (findings nonspecific but a focal infection or inflammatory process cannot be excluded), no evidence of perforation or abscess, colonic diverticulosis without acute inflammatory process, interval progression of the superior endplate L1 vertebral fracture. GI was consulted and patient underwent colonoscopy, which showed non bleeding diverticula and colon ulcer which was clipped. GI reckoned this is a postpolypectomy bleed. Hb 8.3, however iron studies were within normal limits. Bloody stool resolved. Patient will follow up with GI as instructed. F/u with PCP in 3-5 days Repeat CBC in 3 days. Time Spent with Patient Time attestation: Total time spent providing and/or coordinating discharge services: DS: Data Data Completed and Pending Labs on day of discharge: Labs from last 24 hours 03/14/24 03/14/24 04:33 04:32 WBC 8.8 RBC 3.05 L Hgb 8.3 L Hct 26.3 L MCV 86.2 MCH 27.2 MCHC 31.6 L RDW 14.2 Plt Count 172 MPV 11.0 H Immature Gran % (Auto) 0.3 Neut % (Auto) 55.7 Lymph % (Auto) 32.3 [place] % (Auto) 8.1 Eos % (Auto) 3.3 Baso % (Auto) 0.3 Lymph # (Auto) 2.85 [place] # (Auto) 0.7 H Eos # (Auto) 0.3 Baso # (Auto) 0.0 Abs Immat Gran (auto) 0.03 Absolute Neuts (auto) 4.9 Absolute Nucleated RBC 0.000 Nucleated RBC % 0.0 Sodium 133 L Potassium 3.8 Chloride 104 Carbon Dioxide 25 Anion Gap 4 BUN 8 L D Creatinine 1.00 Estim Creat Clear Calc 61 Estimated GFR > 60 Glucose 88 Calcium 8.5 Magnesium 2.0 Total Bilirubin 0.5 AST 16 L ALT 12 Alkaline Phosphatase 31 L Total Protein 6.0 L Albumin 3.1 L Discharge Plan Discharge Attending physician on discharge: Noemi Yeboah Consulting providers: Sagar Heck Discharging Clinician: Noemi Yeboah Anticipated Discharge Date/Time: 03/14/24 12:06 Patient Disposition: Home, Self-Care Activity: as tolerated Diet: as tolerated Patient Instructions: Gastrointestinal Bleeding (DC), Upper Endoscopy (DC) Stand Alone Forms: General Discharge Information Follow-up/Referrals: Sebastian Almanzar MD [Primary Care Provider] - (F/u with PCP in 3-5 days) Sagar Heck MD [Physician] - (F/u with GI as instructed ) Discharge Medications: Continued tamsulosin 0.4 mg capsule 0.4 mg PO QHS sertraline 100 mg tablet 100 mg PO DAILY omeprazole 20 mg capsule,delayed release(DR/EC) 20 mg PO DAILY Qty: 90 1RF Other Ambulatory Orders: Complete Blood Count no Diff (Routine) Timeframe: 3 Days Location: Determined by Patient Ordered By: Noemi Yeboah Date of admission: 03/12/24 13:08 Primary Care Provider: Sebastian Almanzar Admitting Provider: Thom Rodriguez Attending physician on admission: Thom Rodriguez Condition: Improved
== END 2024-03-14 12:42 | disposition home or self-care (01) ==
PROVIDERS: Internal Medicine Gastroenterology; Physician Assistant; Student in an Organized Health Care Education/Training Program; Admitting Provider Hospitalist; PCP Family Medicine; Visit Provider Internal Medicine
PROC: 0DJD8ZZ Inspection of Lower Intestinal Tract, Via Natural or Artificial Opening Endoscopic (ICD-10-PCS; CPT 45378; principal; 2024-03-13 14:30)
DX: K91.840 Postprocedural hemorrhage of a digestive system organ or structure following a digestive system procedure (principal); Y84.8 Other medical procedures as the cause of abnormal reaction of the patient, or of later complication, without mention of misadventure at the time of the procedure; D62 Acute posthemorrhagic anemia; K57.30 Diverticulosis of large intestine without perforation or abscess without bleeding; K63.3 Ulcer of intestine; Z86.0100 Personal history of colon polyps, unspecified; G47.33 Obstructive sleep apnea (adult) (pediatric); N40.0 Benign prostatic hyperplasia without lower urinary tract symptoms; K21.9 Gastro-esophageal reflux disease without esophagitis; R55 Syncope and collapse; I10 Essential (primary) hypertension; F32.9 Major depressive disorder, single episode, unspecified; J30.2 Other seasonal allergic rhinitis; E66.9 Obesity, unspecified; Z68.30 Body mass index [BMI] 30.0-30.9, adult; Z99.89 Dependence on other enabling machines and devices
CPT/HCPCS: 45382; 36415; 80048; 80053; 82728; 83540; 83550; 83735; 85014; 85018; 85025; 85027; 85610; 85730; 86850; 86900; 86901; A9270; G0378; J2003; J2371; J2405; J2704; J7120